=== PATIENT | female | born 1955 | race Caucasian/White ===

== ENCOUNTER 2020-07-21 16:00 | Emergency (ER) | payer OTHER ==
--- OUTSIDE RECORDS SUMMARY | 2020-07-21 16:03 | XMS REPORT | Continuity of Care Document ---
:1955 Author Organization [facility] t Address [address] [place] [address] Dr. Delgadillo [address] [place] [id number] Care Team Providers Name Role Phone Unavailable Unavailable Unavailable Problems This patient has no known problems. Allergies, Adverse Reactions, Alerts This patient has no known allergies or adverse reactions. Medications This patient has no known medications. Procedures This patient has no known procedures. Results This patient has no known results.
[2020-07-21] MEDS ORDERED: ONDANSETRON 4 MG (ODT) TAB ONE (16:52)
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
[2020-07-21 17:18] VITALS: TEMP 99.8; O2SAT 99
[2020-07-21 17:20] VITALS: BP 150/82
== END 2020-07-21 17:14 | disposition home or self-care (01) ==
LOC: ER 16:00
DX: T25.221A Burn of second degree of right foot, initial encounter (principal); Z20.822 Contact with and (suspected) exposure to COVID-19; T31.0 Burns involving less than 10% of body surface; X19.XXXA Contact with other heat and hot substances, initial encounter; Y93.89 Activity, other specified; Y92.009 Unspecified place in unspecified non-institutional (private) residence as the place of occurrence of the external cause; Z88.2 Allergy status to sulfonamides; I10 Essential (primary) hypertension
CPT/HCPCS: 99283; U0003